=== PATIENT | female | born 1975 | race Caucasian/White ===

== ENCOUNTER → 2016-11-19 | Outpatient (CLI) | payer BC ==
[2016-11-19 12:55] LABS: Basophils % (A) 1 %; CH 29.2; CHCM 32.9; Eosinophils # (A) 0.1 k/uL (0-0.7); Eosinophils % (A) 1 %; HCT 40.3 % (34.0-46.0); HGB 13.4 gm/dL (11.4-16.0); Luc % (Auto) 2; Lymphocytes # (A) 1.9 k/uL (1.0-4.8); Lymphocytes % (A) 33 %; MCH 29.7 pg (25.0-35.0); MCHC 33.4 g/dL (31.0-37.0); Mean Platelet Volume 7.1; Monocytes # (A) 0.3 k/uL (0-1.0); Monocytes % (A) 5 %; Neutrophils # (A) 3.3 k/uL (1.3-7.7); Neutrophils % (A) 58 %; RBC 4.52 m/uL (3.80-5.40); RDW 12.6 % (11.5-15.5); WBC 5.7 k/uL (3.8-10.6); WBC (Perox) 5.75
[2016-11-19 13:03] LABS: Anion Gap 12 mmol/L; Blood Urea Nitrogen 16 mg/dL (7-17); Calcium 9.6 mg/dL (8.4-10.2); Carbon Dioxide 27 mmol/L (22-30); Chloride 106 mmol/L (98-107); Glucose 74 mg/dL (74-99); Non-African American GFR(MDRD) >60 (>60 ml/min/1.73 sqM); Potassium 4.1 mmol/L (3.5-5.1); Sodium 145 mmol/L (137-145)
== END | disposition home or self-care (01) ==
LOC: LABPAT 12:28
PROVIDERS: ATTEND Obstetrics & Gynecology
DX: Z01.812 Encounter for preprocedural laboratory examination (principal); Z01.818 Encounter for other preprocedural examination
CPT/HCPCS: 36415; 80048; 85025; 86850; 86900; 86901

== ENCOUNTER 2016-11-30 06:01 | Observation (INO) | payer BC ==
[2016-11-24 15:12] VITALS: BMI 22.8
[~2016-11-30 06:01] MED LIST: DEXAMETHASONE SOD PHOSPHATE 10 MG/ML 1 ML VIAL IV ONE; LIDOCAINE 1% 20 ML VIAL (10MG/ML) FOR IV START INTRADERMA PRN; ONDANSETRON 4 MG/2 ML VIAL IVP ONE; SCOPOLAMINE 1.5MG/72HR PATCH TRANSDERM ONE; ceFAZolin 2 GM in SODIUM CHLORIDE 0.9% 100 ML IVPB ONE
[2016-11-30] MEDS: LACTATED RINGERS 1,000 ML IV SCH ×2 (06:20→06:28)
--- NOTE | 2016-11-30 07:44 | P.HPOB ---
History of Present Illness H&P Date: 11/30/16 Chief Complaint: Menorrhagia Graham is a 41-year-old female who has very heavy vaginal bleeding. Patient's bleeding is so severe that she is unable to function much of the time while she is on her menses. Symptoms have been present for many years and she also complains of dysmenorrhea. She had an on NSAIDs and OCPs but symptoms continued to progress and got to the point where shows again unable to function. She is scheduled for a robotic-assisted laparoscopic hysterectomy with possible BSO possible DAVID. Risks/benefits/alternatives were reviewed with the patient in detail on 2 separate occasions ARE answered for her prior to proceeding to the operating room. On physical exam vital signs are stable and she is afebrile. Heart regular, lungs clear, extremities without pain. Abdomen soft pelvic exam is unremarkable. Assessment menorrhagia. Plan robotic -assisted laparoscopic hysterectomy possible DAVID possible BSO. Past Medical History Additional Past Medical History / Comment(s): HEAVY MENSES, ALOT OF CRAMPING. History of Any Multi-Drug Resistant Organisms: None Reported Past Surgical History: Tonsillectomy, Tubal Ligation Additional Past Surgical History / Comment(s): EXC MOLES. LEEP 2010. Past Anesthesia/Blood Transfusion Reactions: Family History of Problems w/ Anesthesia Additional Past Anesthesia/Blood Transfusion Reaction / Comment(s): DAUGHTER HAS SEVERE PONV. Past Psychological History: No Psychological Hx Reported Smoking Status: Never smoker Past Alcohol Use History: None Reported Past Drug Use History: None Reported - Past Family History Mother Family Medical History: Cancer Medications and Allergies Home Medications Medication Instructions Recorded Confirmed Type Calcium Carbonate [Calcium] 1,200 mg PO DAILY 11/24/16 11/24/16 History Vitamin C/Biotin [Hair, Skin and 2 tab PO DAILY 11/24/16 11/24/16 History Nails] Allergies Allergy/AdvReac Type Severity Reaction Status Date / Time No Known Allergies Allergy Verified 11/24/16 14:56 Exam Osteopathic Statement: *. No significant issues noted on an osteopathic structural exam other than those noted in the History and Physical/Consult. - Vital Signs Vital signs: Vital Signs Temp Pulse Resp BP Pulse Ox 11/30/16 06:19 97.1 F L 92 16 112/75 96
[2016-11-30] MEDS ORDERED: fentaNYL (PF) 50 MCG/ML 2 ML AMP ONE (08:07)
[2016-11-30] MEDS ORDERED: LIDOCAINE 1% INJ 10MG/ML (20 ML MDV) ONE (08:07)
[2016-11-30] MEDS ORDERED: MIDAZOLAM 2 MG/2 ML VIAL ONE (08:07)
[2016-11-30] MEDS ORDERED: SUCCINYLCHOLINE CHLORIDE 100 MG/5 ML SYR IV ONE (08:07)
[2016-11-30] MEDS ORDERED: PROPOFOL 10 MG/ML 20 ML VIAL IV ONE (08:07)
[2016-11-30] MEDS ORDERED: GLYCOPYRROLATE 0.2 MG/ML 2 ML VIAL ONE (08:07)
[2016-11-30] MEDS ORDERED: NEOSTIGMINE 1 MG/ML 10 ML VIAL ONE (08:07)
[2016-11-30] MEDS ORDERED: ROCURONIUM BROMIDE 10 MG/ML 10 ML VIAL IV ONE (08:07)
[2016-11-30] MEDS ORDERED: BUPIVACAINE (PF) 0.25% 30 ML VIAL SQ ONE (08:23)
[2016-11-30] MEDS ORDERED: ONDANSETRON 4 MG/2 ML VIAL IVP PRN (09:20)
[2016-11-30] MEDS ORDERED: Acetaminophen-Codeine 300-30mg TAB PO PRN ×2 (09:20)
[2016-11-30] MEDS ORDERED: diphenhydrAMINE 50 MG/ML 1 ML VIAL IVP PRN (09:20)
[2016-11-30] MEDS ORDERED: SIMETHICONE 80 MG CHEWABLE PO PRN (09:20)
[2016-11-30] MEDS ORDERED: LACTATED RINGERS 1,000 ML IV ONE (09:20)
--- NOTE | 2016-11-30 09:27 | P.OP ---
Date of Procedure: 11/30/16 Preoperative Diagnosis: Menorrhagia and dysmenorrhea Postoperative Diagnosis: Same with scarring to the right bladder area and round ligament Procedure(s) Performed: Robotic-assisted left scopic hysterectomy with lysis of adhesions and bilateral salpingectomy Implants: Anesthesia: RONANA Surgeon: Markus Morris Estimated Blood Loss (ml): 10 IV fluids (ml): 850 Urine output (ml): 225 Pathology: other (Uterus, cervix, fallopian tubes) Condition: stable Disposition: floor Indications for Procedure: Operative Findings: Scarring to the right side of the bladder and anterior uterus and round ligament region unknown etiology Description of Procedure: Patient was taken to the operating suite where a general anesthetic was found be adequate. She was prepped and draped in normal sterile fashion and placed in dorsal lithotomy position. Initially weighted speculum was inserted into the vagina and the Mariela manipulator was inserted without difficulty after sounding to 10 cm and measuring cup size to 3 cm sutures were placed at 3-9/10 clock position to assist in removal of the uterus. Webster catheter was then placed and gloves were changed and attention was turned to abdominal portion procedure. Approximately 2 mL of quarter percent Marcaine were then injected approximately 1 cm above the umbilicus through this injected anesthetic 8 mm skin incision was made and through this incision under direct visualization. Trocar and sleeve the camera was inserted. Once peritoneal placement was assured gas left fully insufflate the abdomen and patient's placement very steep Trendelenburg position and 2 lateral ports were then placed 11 cm from the umbilicus. A fourth port and sleeve was inserted between the left lateral and medial ports slightly superior to the medial port. These were all inserted under direct visualization. Once this was fully accomplished robot was brought in and docked using a scissor in the one arm and a Maryland grasper in the 2 arm I did break scrub and go to the console. Observations pelvis were noted as above. First uterus was elevated and tilted to the right-hand side fallopian tube was then cauterized with Maryland and then excised with the scissor and tissue was placed in the cul-de-sac once this was accomplished the left utero- ovarian layer was identified cauterized and cut broad ligament areas were then cauterized and cut to the round ligament. Round ligament was then cauterized and transected and anterior posterior leafs of the broad ligament were developed. This was done down to level of the bladder flap bladder flap was then undermined using Maryland and incised with scissor. This was carried across face uterus and the bladder was bluntly and sharply dissected off the operative field. Was noted at this point there was scarring of unknown etiology between the bladder and the uterus as well as the round ligament areas this tissue was easily removed. Once this was accomplished attention was turned the right side of the uterus in a similar fashion this tissues developed down to the bladder flap. Once bladder flap was completed on both sides and were able to visualize the cervix and cup anterior colpotomy was made using the scissor. Moving in a counterclockwise fashion cauterizing head when needed the scissor was used followed the blue couple 3 and 60 around the cervix and once this was accomplished uterus was brought into the vagina to maintain pneumoperitoneum. Once accomplished seen no bleeding from the pedicles the fallopian tubes were grasped using a ring forceps through the vagina and removed. Once this was fully accomplished instruments were exchanged for a cardia grasper and make suture cut. 20V lock sutures then used to reapproximate the vaginal mucosa in a running fashion excellent hemostasis was noted at this point. All instruments were then removed and gas was allowed to expel from the abdomen following suction irrigation. At this point I did do a cystoscopy and verified flow from both ureteral jets. The lpn medical assistant did close the incisions on the abdomen with 4-0 Vicryl and the remaining 8 mL of quarter percent Marcaine were then injected around these incisions. Sponge, lap, needle counts were all correct 2. Patient was then taken to the recovery room in stable and satisfactory condition.
[2016-11-30] MEDS: HYDROmorphone 1 MG/ML 1 ML SYRINGE IVP PRN ×2 (09:47→10:12)
[2016-11-30] MEDS ORDERED: KETOROLAC 30 MG/ML 1 ML VIAL IVP ONE (10:17)
[2016-11-30] MEDS: KETOROLAC 30 MG/ML 1 ML VIAL IVP PRN ×2 (16:38→22:49)
[2016-11-30] MEDS ORDERED: SENNOSIDES-DOCUSATE SODIUM 1 EACH TAB PO SCH (21:00)
[2016-12-01 06:04] LABS: Basophils % (A) 0 %; CHCM 32.8; Eosinophils % (A) 0 %; HCT 35.6 % (34.0-46.0); HDW 2.17; HGB 11.8 gm/dL (11.4-16.0); Luc # (Auto) 0.16; Luc % (Auto) 2; Lymphocytes # (A) 2.4 k/uL (1.0-4.8); Lymphocytes % (A) 23 %; MCH 29.4 pg (25.0-35.0); MCHC 33.2 g/dL (31.0-37.0); MCV 88.6 fL (80.0-100.0); Mean Platelet Volume 7.4; Monocytes # (A) 0.5 k/uL (0-1.0); Monocytes % (A) 5 %; Neutrophils # (A) 7.4 k/uL (1.3-7.7); Neutrophils % (A) 71 %; RBC 4.01 m/uL (3.80-5.40); RDW 12.5 % (11.5-15.5); WBC 10.5 k/uL (3.8-10.6); WBC (Perox) 11.28
--- NOTE | 2016-12-01 08:06 | P.DS ---
Providers Date of admission: 12/01/16 00:09 Expected date of discharge: 12/01/16 Attending physician: Markus Morris Primary care physician: [facility] Course: Graham is doing very well postop day 1. She is ambulating, voiding, and she is tolerating her diet. She voices no complaint. She has passing flatus. Vital signs are stable and afebrile. On physical exam her heart is regular, lungs are clear, extremities are without pain. Abdomen soft incisions appear intact. Assessment postop day 1. Plan discharged home follow up with me in 1 week. Prescription for Motrin and Tylenol No. 3 have been provided and all discharge instructions thoroughly reviewed and all questions are answered for her. She is stable for discharge at this time. Patient Condition at Discharge: Good Plan - Discharge Summary New Discharge Prescriptions: New Acetaminophen-Codeine 300-30mg [Tylenol #3] 1 tab PO Q4H PRN #30 tablet PRN Reason: Pain Ibuprofen [Motrin] 600 mg PO Q6HR PRN #30 tab PRN Reason: Pain No Action Vitamin C/Biotin [Hair, Skin and Nails] 2 tab PO DAILY Calcium Carbonate [Calcium] 1,200 mg PO DAILY Discharge Medication List Calcium Carbonate [Calcium] 1,200 mg PO DAILY 11/24/16 [History] Vitamin C/Biotin [Hair, Skin and Nails] 2 tab PO DAILY 11/24/16 [History] Acetaminophen-Codeine 300-30mg [Tylenol #3] 1 tab PO Q4H PRN #30 tablet [Rx] Ibuprofen [Motrin] 600 mg PO Q6HR PRN #30 tab 12/01/16 [Rx] Follow up Appointment(s)/Referral(s): Markus Morris DO [Doctor of Osteopathic Medicine] - 1 Week Activity/Diet/Wound Care/Special Instructions: No heavy lifting, limit stairs and driving and pelvic rest. If any high temperatures, heavy bleeding, or severe pain call my office
[2016-12-01 08:12] VITALS: BP 128/84; PULSE 73; RESP 19; TEMP 98
== END 2016-12-01 09:39 | disposition home or self-care (01) ==
LOC: OR 06:01 → 6PED 09:24 → OR 12-01 00:09 → 6PED 12-01 00:09
PROVIDERS: ADMIT Obstetrics & Gynecology; ATTEND Obstetrics & Gynecology
DX: N92.0 Excessive and frequent menstruation with regular cycle (principal); N94.6 Dysmenorrhea, unspecified
CPT/HCPCS: 58542; S2900; 81025; 85025; 86850; 86900; 86901; 88307

== ENCOUNTER → 2016-12-09 | Outpatient (CLI) | payer BC ==
--- NOTE | 2016-12-09 11:57 | MM ---
Reason for exam: screening (asymptomatic). Last mammogram was performed 1 year ago. History: Patient had first child at age 35. Family history of breast cancer in aunt and breast cancer in grandmother. Took hormonal contraceptives for 10 years. Physical Findings: A clinical breast exam by your physician is recommended on an annual basis and results should be correlated with mammographic findings. MG Screening Mammo w CAD Bilateral CC and MLO view(s) were taken. Prior study comparison: December 09, 2015, bilateral MG screening mammo w CAD. December 07, 2014, bilateral MG screening mammo w CAD. November 23, 2013, bilateral MG screening mammo w CAD. The breast tissue is extremely dense which could obscure a lesion on mammography. There is no discrete abnormality. ASSESSMENT: Negative, BI-RAD 1 RECOMMENDATION: Routine screening mammogram of both breasts in 1 year.
== END | disposition home or self-care (01) ==
LOC: RADMAMWWP 09:17
PROVIDERS: ATTEND Obstetrics & Gynecology
DX: Z12.31 Encounter for screening mammogram for malignant neoplasm of breast (principal)

== ENCOUNTER → 2018-01-11 | Outpatient (CLI) | payer BC ==
--- NOTE | 2018-01-12 13:43 | MM ---
Reason for exam: screening (asymptomatic). Last mammogram was performed 1 year and 1 month ago. History: Patient had first child at age 35. Family history of breast cancer in aunt and breast cancer in grandmother. Took hormonal contraceptives for 10 years. Physical Findings: A clinical breast exam by your physician is recommended on an annual basis and results should be correlated with mammographic findings. MG 3D Screening Mammo W/Cad Bilateral CC and MLO view(s) were taken. Prior study comparison: December 09, 2016, bilateral MG screening mammo w CAD. December 09, 2015, bilateral MG screening mammo w CAD. The breast tissue is extremely dense which could obscure a lesion on mammography. There is no discrete abnormality. ASSESSMENT: Negative, BI-RAD 1 RECOMMENDATION: Routine screening mammogram of both breasts in 1 year.
== END | disposition home or self-care (01) ==
LOC: RADMAMWWP 06:54
PROVIDERS: ATTEND Obstetrics & Gynecology
DX: Z12.31 Encounter for screening mammogram for malignant neoplasm of breast (principal)
CPT/HCPCS: 77063; 77067

== ENCOUNTER → 2019-01-31 | Outpatient (CLI) | payer BC ==
--- NOTE | 2019-02-01 09:37 | MM ---
Reason for exam: screening (asymptomatic). Last mammogram was performed 1 year and 1 month ago. History: Patient had first child at age 35. Family history of breast cancer in aunt and breast cancer in grandmother. Took hormonal contraceptives for 10 years. Physical Findings: A clinical breast exam by your physician is recommended on an annual basis and results should be correlated with mammographic findings. MG 3D Screening Mammo W/Cad Bilateral CC and MLO view(s) were taken. Prior study comparison: January 11, 2018, bilateral MG 3d screening mammo w/cad. December 09, 2016, bilateral MG screening mammo w CAD. The breast tissue is extremely dense which could obscure a lesion on mammography. Focal asymmetry left upper MLO 11 o'clock, 6cm from nipple. This finding is changed when compared with previous exams. ASSESSMENT: Incomplete: need additional imaging evaluation, BI-RAD 0 RECOMMENDATION: Special view mammogram of the left breast. If lesion persists on supplemental views, image directed ultrasound is recommended. [facility] will attempt to contact patient to return for supplemental views and ultrasound if indicated.
== END | disposition home or self-care (01) ==
LOC: RADMAMWWP 06:47
PROVIDERS: ATTEND Obstetrics & Gynecology
DX: Z12.31 Encounter for screening mammogram for malignant neoplasm of breast (principal)
CPT/HCPCS: 77063; 77067

== ENCOUNTER → 2019-02-09 | Outpatient (CLI) | payer BC ==
--- NOTE | 2019-02-10 08:12 | MM ---
Reason for exam: additional evaluation requested from abnormal screening. Last mammogram was performed less than 1 month ago. History: Patient had first child at age 35. Family history of breast cancer in aunt and breast cancer in grandmother. Took hormonal contraceptives for 10 years. Physical Findings: Nurse did not find any significant physical abnormalities on exam. MG 3D Work Up W/Cad LT Spot compression CC, spot compression MLO, and LM view(s) were taken of the left breast. Prior study comparison: January 31, 2019, bilateral MG 3d screening mammo w/cad. January 11, 2018, bilateral MG 3d screening mammo w/cad. The breast tissue is heterogeneously dense. This may lower the sensitivity of mammography. The previously seen abnormality resolves on additional views and appears as fibroglandular tissue compatible with summation. These results were verbally communicated with the patient and result sheet given to the patient on 02/09/19. ASSESSMENT: Negative, BI-RAD 1 RECOMMENDATION: Return to routine screening mammogram schedule for both breasts.
== END | disposition home or self-care (01) ==
LOC: RADMAMWWP 14:44
PROVIDERS: ATTEND Obstetrics & Gynecology
DX: R92.8 Other abnormal and inconclusive findings on diagnostic imaging of breast (principal)
CPT/HCPCS: 77061; 77065

== ENCOUNTER → 2020-05-01 | Outpatient (CLI) | payer BC ==
--- NOTE | 2020-05-02 12:38 | MM ---
Reason for exam: screening (asymptomatic). Last mammogram was performed 1 year and 3 months ago. History: Patient had first child at age 35. Family history of breast cancer in aunt and breast cancer in grandmother. Took hormonal contraceptives for 10 years. Physical Findings: A clinical breast exam by your physician is recommended on an annual basis and results should be correlated with mammographic findings. MG 3D Screening Mammo W/Cad Bilateral CC and MLO view(s) were taken. Prior study comparison: February 09, 2019, left breast MG 3d work up w/cad LT. January 31, 2019, bilateral MG 3d screening mammo w/cad. The breast tissue is heterogeneously dense. This may lower the sensitivity of mammography. No significant changes when compared with prior studies. ASSESSMENT: Benign, BI-RAD 2 RECOMMENDATION: Routine screening mammogram of both breasts in 1 year.
== END | disposition home or self-care (01) ==
LOC: RADMAMWWP 07:01
PROVIDERS: ATTEND Obstetrics & Gynecology
DX: Z12.31 Encounter for screening mammogram for malignant neoplasm of breast (principal)
CPT/HCPCS: 77063; 77067

== ENCOUNTER → 2021-06-26 | Outpatient (CLI) | payer BC ==
--- NOTE | 2021-06-30 11:15 | MM ---
Reason for exam: screening (asymptomatic). Last mammogram was performed 1 year and 2 months ago. History: Patient had first child at age 35. Family history of breast cancer in aunt and breast cancer in grandmother. Took hormonal contraceptives for 10 years. Physical Findings: A clinical breast exam by your physician is recommended on an annual basis and results should be correlated with mammographic findings. MG 3D Screening Mammo W/Cad Bilateral CC and MLO view(s) were taken. Prior study comparison: May 01, 2020, bilateral MG 3d screening mammo w/cad. February 09, 2019, left breast MG 3d work up w/cad LT. The breast tissue is heterogeneously dense. This may lower the sensitivity of mammography. Nodular focal asymmetry far posterior lateral right CC view is more defined. ASSESSMENT: Incomplete: need additional imaging evaluation, BI-RAD 0 RECOMMENDATION: Special view mammogram of the right breast. (3D) If lesion persists on supplemental views, image directed ultrasound is recommended. [facility] will attempt to contact patient to return for supplemental views and ultrasound if indicated.
== END | disposition home or self-care (01) ==
LOC: RADMAMWWP 11:08
PROVIDERS: ATTEND Obstetrics & Gynecology
DX: Z12.31 Encounter for screening mammogram for malignant neoplasm of breast (principal); Z80.3 Family history of malignant neoplasm of breast
CPT/HCPCS: 77063; 77067

== ENCOUNTER → 2021-07-04 | Outpatient (CLI) | payer BC ==
--- NOTE | 2021-07-07 10:14 | MM ---
Reason for exam: additional evaluation requested from abnormal screening. Last mammogram was performed less than 1 month ago. History: Patient had first child at age 35. Family history of breast cancer in paternal aunt and breast cancer in paternal grandmother. Took hormonal contraceptives for 24 years beginning at age 17. Physical Findings: Nurse did not find any significant physical abnormalities on exam. MG 3D Work Up W/Cad RT Spot compression XCCL, spot compression MLO, and ML view(s) were taken of the right breast. Prior study comparison: June 26, 2021, bilateral MG 3d screening mammo w/cad. May 01, 2020, bilateral MG 3d screening mammo w/cad. The breast tissue is heterogeneously dense. This may lower the sensitivity of mammography. There is no discrete abnormality including area of concern. posterior upper outer quadrant right breast. No significant new findings when compared with previous films. These results were verbally communicated with the patient and result sheet given to the patient on 07/04/21. ASSESSMENT: Probably benign, BI-RAD 3 RECOMMENDATION: Follow-up diagnostic mammogram of the right breast in 6 months.
== END | disposition home or self-care (01) ==
LOC: RADMAMWWP 10:11
PROVIDERS: ATTEND Obstetrics & Gynecology
DX: R92.2 Inconclusive mammogram (principal); Z80.3 Family history of malignant neoplasm of breast
CPT/HCPCS: 77061; 77065

== ENCOUNTER → 2022-01-07 | Outpatient (CLI) | payer BC ==
--- NOTE | 2022-01-07 07:27 | MM ---
Reason for Exam: Follow-up at short interval from prior study. Last screening mammogram was performed 7 month(s) ago. Patient History: Menarche at age 11. First Full-Term at age 35. Late child-bearing (after 30). Hysterectomy at age 41. Hormonal Contraceptives for 24 years from age 17 until age 41. Paternal grandmother had breast cancer. Paternal aunt had breast cancer. Risk Values: Shweta 5 year model risk: 1.3%. NCI Lifetime model risk: 12.5%. Prior Study Comparison: 05/01/2020 Bilateral Screening Mammogram, [facility]. 06/26/2021 Bilateral Screening Mammogram, [facility]. 07/04/2021 Right Diagnostic Mammogram, [facility]. Tissue Density: Right: The breast tissue is extremely dense which could obscure a lesion on mammography. Findings: Analyzed By CAD. No distinct new mass or worrisome cluster of microcalcification in the right breast. Overall Assessment: Negative, BI-RAD 1 Management: Screening Mammogram of both breasts in 6 months. Back to routine follow-up. Results were given to the patient verbally at the time of exam. Some advise annual ultrasound surveillance in patients with background extremely dense tissue. Electronically signed and approved by: Stan Payne M.D.
== END | disposition home or self-care (01) ==
LOC: RADMAMWWP 06:50
PROVIDERS: ATTEND Obstetrics & Gynecology
DX: R92.8 Other abnormal and inconclusive findings on diagnostic imaging of breast (principal); Z80.3 Family history of malignant neoplasm of breast
CPT/HCPCS: 77061; 77065

== ENCOUNTER 2022-06-23 10:17 | Day surgery (SDC) | payer BC ==
[2022-06-19 14:01] VITALS: BMI 22.8
[~2022-06-23 10:17] MED LIST changes: -DEXAMETHASONE SOD PHOSPHATE 10 MG/ML 1 ML VIAL IV ONE; +LIDOCAINE 1% (10MG/ML) FOR IV START INTRADERMA PRN; -LIDOCAINE 1% 20 ML VIAL (10MG/ML) FOR IV START INTRADERMA PRN; -ONDANSETRON 4 MG/2 ML VIAL IVP ONE; -SCOPOLAMINE 1.5MG/72HR PATCH TRANSDERM ONE; -ceFAZolin 2 GM in SODIUM CHLORIDE 0.9% 100 ML IVPB ONE
[2022-06-23] MEDS: LACTATED RINGERS 1,000 ML IV SCH ×2 (10:49→11:30)
[2022-06-23 10:51] VITALS: TEMP 96.9
[2022-06-23] MEDS ORDERED: PROPOFOL 10 MG/ML 20 ML VIAL IV ONE (11:32)
--- NOTE | 2022-06-23 11:46 | P.PCN ---
Date of Procedure: 06/23/22 Procedure(s) Performed: BRIEF HISTORY: Patient is a 46-year-old pleasant female scheduled for an elective colonoscopy as a part of screening for colon cancer. PROCEDURE PERFORMED: Colonoscopy. PREOPERATIVE DIAGNOSIS: Screening for colon cancer. IV sedation per Anesthesia. PROCEDURE: After informed consent was obtained, the patient, was brought into the endoscopy unit. IV sedation was administered by Anesthesia under continuous monitoring. Digital rectal examination was normal. Initially the Olympus CF-160 flexible video colonoscope was then inserted in the rectum, gradually advanced into the cecum without any difficulty. Careful examination was performed as the scope was gradually being withdrawn. Ileocecal valve and the appendiceal orifice were visualized and appeared normal. Prep was excellent. Mucosa of the cecum, ascending colon, transverse colon, descending colon, sigmoid colon, and rectum appeared normal. Retroflexion was performed in the rectum and no lesions were seen. The patient tolerated the procedure well. IMPRESSION: Normal-appearing colon from rectum to cecum with no evidence of colorectal neoplasia. RECOMMENDATIONS: Findings of this examination were discussed with the patient well as her family. She was advised to have a repeat screening colonoscopy in 10 years..
[2022-06-23 11:53] VITALS: RESP 16
[2022-06-23 12:05] VITALS: BP 103/69; PULSE 76
== END 2022-06-23 12:39 | disposition home or self-care (01) ==
LOC: ORWHC2ENDO 10:17
PROVIDERS: ATTEND Internal Medicine Gastroenterology
DX: Z12.11 Encounter for screening for malignant neoplasm of colon (principal); Z79.899 Other long term (current) drug therapy; Z98.890 Other specified postprocedural states
CPT/HCPCS: 45378; J2704

== ENCOUNTER → 2022-07-13 | Outpatient (CLI) | payer BC ==
--- NOTE | 2022-07-14 08:51 | MM ---
Reason for Exam: Screening (asymptomatic). Last mammogram was performed 1 year(s) and 1 month(s) ago. Patient History: Menarche at age 11. First Full-Term at age 35. Late child-bearing (after 30). Hysterectomy at age 41. Hormonal Contraceptives for 24 years from age 17 until age 41. Paternal grandmother had breast cancer. Paternal aunt had breast cancer. Risk Values: Shweta 5 year model risk: 1.3%. NCI Lifetime model risk: 12.5%. Prior Study Comparison: 06/26/2021 Bilateral Screening Mammogram, [facility]. 07/04/2021 Right Diagnostic Mammogram, [facility]. 01/07/2022 Right MG 3D diag mammo w/cad RT, [facility]. Tissue Density: The breast tissue is heterogeneously dense. This may lower the sensitivity of mammography. Findings: Analyzed By CAD. There is no suspicious group of microcalcifications or new suspicious mass in either breast. Overall Assessment: Negative, BI-RAD 1 Management: Screening Mammogram of both breasts in 1 year. A clinical breast exam by your physician is recommended on an annual basis and results should be correlated with mammographic findings. Electronically signed and approved by: Amish Garcia D.O.
== END | disposition home or self-care (01) ==
LOC: RADMAMWWP 07:49
PROVIDERS: ATTEND Obstetrics & Gynecology
DX: Z12.31 Encounter for screening mammogram for malignant neoplasm of breast (principal); Z80.3 Family history of malignant neoplasm of breast
CPT/HCPCS: 77063; 77067

== ENCOUNTER → 2023-07-21 | Outpatient (CLI) | payer BC ==
--- NOTE | 2023-07-21 10:59 | MM ---
Reason for Exam: Screening (asymptomatic). Last screening mammogram was performed 12 month(s) ago. Patient History: Menarche at age 11. First Full-Term at age 35. Late child-bearing (after 30). Hysterectomy at age 41. Hormonal Contraceptives for 24 years from age 17 until age 41. Paternal grandmother had breast cancer. Paternal aunt had breast cancer. Risk Values: Shweta 5 year model risk: 1.3%. NCI Lifetime model risk: 12.3%. Prior Study Comparison: 07/04/2021 Right Diagnostic Mammogram, [facility]. 01/07/2022 Right MG 3D diag mammo w/cad RT, [facility]. 07/13/2022 Bilateral MG 3D screening mammo w/cad, [facility]. Tissue Density: The breast tissue is heterogeneously dense. This may lower the sensitivity of mammography. Findings: Analyzed By CAD. There is no suspicious group of microcalcifications or new suspicious mass. Overall Assessment: Negative, BI-RAD 1 Management: Screening Mammogram of both breasts in [address] [facility] will attempt to contact patient to return for supplemental views and ultrasound if indicated. Patient should continue monthly self-breast exams. A clinical breast exam by your physician is recommended on an annual basis. This exam should not preclude additional follow-up of suspicious palpable abnormalities. Note on Shweta scores and lifetime risk: 1. A Shweta score greater than 3% is considered moderate risk. If this is the case, consider specialist referral to assess eligibility for a risk reducing agent. 2. If overall lifetime risk for the development of breast cancer is 20% or higher, the patient may qualify for future screening with alternating mammogram and breast MRI. Electronically signed and approved by: Yamil Miranda DO
== END | disposition home or self-care (01) ==
LOC: RADMAMWWP 07:37
PROVIDERS: ATTEND Obstetrics & Gynecology
DX: Z12.31 Encounter for screening mammogram for malignant neoplasm of breast (principal); Z80.3 Family history of malignant neoplasm of breast
CPT/HCPCS: 77063; 77067

== ENCOUNTER → 2024-01-31 | Outpatient (CLI) | payer BC ==
--- NOTE | 2024-02-22 14:57 | US ---
Site ID [facility] Patient Ese Bustos D ID [id number] Age/Gender: 48Y, F Order # N/A Procedure US abdomen complete Date 01/31/2024 7:31:00 AM EXAMINATION TYPE: US abdomen complete DATE OF EXAM: 02/19/2024 COMPARISON: NONE CLINICAL INDICATION: Female, 48 year old with history of pain and nausea. TECHNIQUE: Multiple sonographic images of the abdomen are obtained. Delayed interpretation due to ins titutional cyber attack. FINDINGS: EXAM MEASUREMENTS: Liver Length: 14.8 cm Gallbladder Wall: 0.2 cm CBD: 0.4 cm Spleen: 10.4 cm Right Kidney: 9.7 x 3.4 x 4.4 cm Left Kidney: 9.4 x 3.9 x 4.0 cm ASSISTANT PARALEGAL NOTES: Pancreas: wnl Liver: wnl Gallbladder: wnl Evidence for sonographic Reed's sign: No CBD: wnl Spleen: wnl Right Kidney: wnl Left Kidney: wnl Upper IVC: wnl Abd Aorta: wnl The liver is homogenous. The intrahepatic portion of the IVC and proximal abdominal aorta are within normal limits. There is no evidence of cholelithiasis. Common bile duct is unremarkable. The visu alized portions of the pancreas are homogenous. The spleen is unremarkable. Kidneys are symmetric a nd free of hydronephrosis. No renal lesions are seen. IMPRESSION: Unremarkable abdominal ultrasound.
== END | disposition home or self-care (01) ==
LOC: RADUSWWP 07:16
PROVIDERS: ATTEND Family Medicine
DX: R10.84 Generalized abdominal pain (principal); R11.0 Nausea
CPT/HCPCS: 76700

== ENCOUNTER → 2024-07-24 | Outpatient (CLI) | payer BC ==
--- NOTE | 2024-07-24 10:16 | MM ---
Reason for Exam: Screening (asymptomatic). Last screening mammogram was performed 12 month(s) ago. Patient History: Menarche at age 11. First Full-Term at age 35. Late child-bearing (after 28). Hysterectomy at age 41. Hormonal Contraceptives for 24 years from age 17 until age 41. Paternal grandmother had breast cancer. Paternal aunt had breast cancer. Risk Values: Shweta 5 year model risk: 1.3%. NCI Lifetime model risk: 12.1%. Prior Study Comparison: 01/07/2022 Right MG 3D diag mammo w/cad RT, [facility]. 07/13/2022 Bilateral MG 3D screening mammo w/cad, [facility]. 07/21/2023 Bilateral MG 3D screening mammo w/cad, [facility]. Tissue Density: The breasts are heterogeneously dense, which may obscure small masses. Findings: Analyzed By CAD. Right breast: There is no suspicious group of microcalcifications or new suspicious mass. Left breast: There is no suspicious group of microcalcifications or new suspicious mass. Overall Assessment: Negative, BI-RAD 1 Management: Screening Mammogram of both breasts in [address] [facility] will attempt to contact patient to return for supplemental views and ultrasound if indicated. Patient should continue monthly self-breast exams. A clinical breast exam by your physician is recommended on an annual basis. This exam should not preclude additional follow-up of suspicious palpable abnormalities. Note on Shweta scores and lifetime risk: 1. A Shweta score greater than 3% is considered moderate risk. If this is the case, consider specialist referral to assess eligibility for a risk reducing agent. 2. If overall lifetime risk for the development of breast cancer is 20% or higher, the patient may qualify for future screening with alternating mammogram and breast MRI. [facility], , 07/24/2024 8:03 AM. Electronically signed and approved by: Yamil Miranda DO
== END | disposition home or self-care (01) ==
LOC: RADMAMWWP 07:32
PROVIDERS: ATTEND Obstetrics & Gynecology
DX: Z12.31 Encounter for screening mammogram for malignant neoplasm of breast (principal); R92.333 Mammographic heterogeneous density, bilateral breasts; Z80.3 Family history of malignant neoplasm of breast
CPT/HCPCS: 77063; 77067